=== PATIENT | female | born 1955 | race Caucasian/White ===

== ENCOUNTER → 2019-04-15 | Outpatient (CLI) | payer BC ==
[~2019-04-15] MED LIST: CITA20TA9 PO; METF500T17 PO; PRAV80TA2 PO
[2019-04-15 10:27] LABS: BASOPHILS # (AUTO) 0.05 x10^3/uL (0-0.1); BASOPHILS % (AUTO) 1 % (0-1); EOSINOPHILS # (AUTO) 0.13 x10^3/uL (0-0.4); EOSINOPHILS % (AUTO) 2 % (1-7); LYMPHOCYTES % (AUTO) 24 % (22-44); MD NO; MEAN CORPUSCULAR HEMOGLOBIN 29.4 pg (27.0-34.8); MEAN CORPUSCULAR HGB CONC 33.8 g/dL (32.4-35.8); MEAN CORPUSCULAR VOLUME 87.1 fL (80-100); MEAN PLATELET VOLUME 8.6 fL (7.4-10.4); MONOCYTES # (AUTO) 0.25 x10^3/uL (0.2-0.8); MONOCYTES % (AUTO) 4 % (2-9); NEUTROPHILS # (AUTO) 3.95 x10^3/uL (1.8-6.8); NEUTROPHILS % (AUTO) 68 % (42-75); PLATELET COUNT 308 x10^3/uL (130-400); RED BLOOD COUNT 5.09 x10^6/uL (3.82-5.3)
[2019-04-15 10:36] LABS: INTERNATIONAL NORMALIZED RATIO 0.93 (0.93-1.1); PROTHROMBIN TIME 9.8 Seconds (9.6-11.5)
[2019-04-15 10:39] LABS: ALBUMIN 3.7 g/dL (3.4-5.0); ANION GAP 6 mmol/L (5-15); CALCIUM 8.6 mg/dL (8.5-10.1); CHLORIDE 110 mmol/L (98-107)
[2019-04-15 10:42] LABS: ALANINE AMINOTRANSFERASE 20 U/L (12-78); ALKALINE PHOSPHATASE 114 U/L (45-117); BILIRUBIN,TOTAL 0.5 mg/dL (0.2-1.0); CREATININE 0.93 mg/dL (0.55-1.02); TOTAL PROTEIN 7.8 g/dL (6.4-8.2)
== END | disposition home or self-care (01) ==
LOC: STAR 09:34
PROVIDERS: ATTEND Specialist
DX: Z01.811 Encounter for preprocedural respiratory examination (principal); C56.9 Malignant neoplasm of unspecified ovary; C77.5 Secondary and unspecified malignant neoplasm of intrapelvic lymph nodes; R19.00 Intra-abdominal and pelvic swelling, mass and lump, unspecified site
CPT/HCPCS: 36415; 71046; 80053; 85025; 85610; 85730; 86304; 93005

== ENCOUNTER 2019-04-26 09:40 | Inpatient (IN) | payer BC ==
[~2019-04-26] VITALS: Ht 162.6 cm; Wt 81.9 kg
[2019-04-26] MEDS ORDERED: LACTATED RINGERS 1,000 ML IV STA (14:19)
[2019-04-26] MEDS ORDERED: CEFOTETAN PMX 2GM/50ML 50 ML IV STA (14:34)
[2019-04-26] MEDS ORDERED: CEFOTETAN PMX 2GM/50ML 50 ML ONE (14:38)
[2019-04-26] MEDS ORDERED: LACTATED RINGERS 1,000 ML IV ONE (15:30)
[2019-04-26] MEDS ORDERED: HEPARIN 1,000 UNITS/ML, 10ML ONE ×2 (16:32→16:53)
[2019-04-26] MEDS ORDERED: GABAPENTIN 300 MG CAPSULE ONE ×2 (16:32)
[2019-04-26] MEDS ORDERED: ACETAMINOPHEN 500 MG TABLET ONE ×2 (16:32)
[2019-04-26] MEDS ORDERED: BUPIVACAINE/PF-EPI 0.25% 1:200K ONE (16:52)
[2019-04-26] MEDS ORDERED: PROTAMINE SULFATE 10 MG/ML, 5ML ONE (16:52)
[2019-04-26] MEDS ORDERED: THROMBIN 5,000 UNIT VIAL TP ONE (16:53)
[2019-04-26] MEDS ORDERED: KETOROLAC 30 MG/1 ML ONE (17:05)
[2019-04-26] MEDS ORDERED: FENTANYL PF 100 MCG/2ML ONE ×3 (17:11)
[2019-04-26] MEDS ORDERED: MIDAZOLAM 1 MG/ML, 2ML ONE (17:11)
[2019-04-26] MEDS ORDERED: SUGAMMADEX 200 MG/2 ML IVPush ONE (18:34)
[2019-04-26] MEDS ORDERED: SUCCINYLCHOLINE 20 MG/ML, 10ML ONE (18:34)
[2019-04-26] MEDS ORDERED: NEOSTIGMINE 1 MG/ML, 10ML ONE (18:34)
[2019-04-26] MEDS ORDERED: PROPOFOL 10 MG/ML, 20ML ONE (18:34)
[2019-04-26] MEDS ORDERED: CEFAZOLIN 1,000 MG ONE (18:34)
[2019-04-26] MEDS ORDERED: ONDANSETRON 2MG/ML, 2ML ONE (18:34)
[2019-04-26] MEDS ORDERED: GLYCOPYRROLATE 0.2MG/1ML, 5ML ONE (18:34)
[2019-04-26] MEDS ORDERED: DEXAMETHASONE 4 MG/ML, 1ML ONE (18:34)
[2019-04-26] MEDS ORDERED: ROCURONIUM 10MG/ML,5ML ONE (18:34)
[2019-04-26] MEDS ORDERED: KETOROLAC 30 MG/1 ML IV PRN (19:00)
[2019-04-26] MEDS ORDERED: DIAZEPAM 5 MG/ML, 2ML IVPush PRN (19:00)
[2019-04-26] MEDS ORDERED: ALBUTEROL SULFATE 2.5 MG/3 ML NPPB PRN (19:00)
[2019-04-26] MEDS ORDERED: LABETALOL 5MG/ML, 20ML IV PRN (19:00)
[2019-04-26] MEDS ORDERED: hydrALAzine 20 MG/ML, 1ML IV PRN (19:00)
[2019-04-26] MEDS ORDERED: MEPERIDINE/PF 25MG/0.5ML IVPush PRN (19:00)
[2019-04-26] MEDS ORDERED: FENTANYL PF 100 MCG/2ML IV PRN (19:00)
[2019-04-26] MEDS ORDERED: PROMETHAZINE 25 MG/ML, 1ML IV PRN (19:00)
[2019-04-26] MEDS ORDERED: HYDROmorphone 2 MG/ML, 1ML IVPush PRN (19:00)
[2019-04-26] MEDS ORDERED: OXYcodone 5 MG/5 ML ORAL.SOL UDC PO PRN (19:00)
[2019-04-26] MEDS ORDERED: ACETAMINOPHEN 325 MG TABLET PO PRN (19:00)
== END 2019-04-26 23:00 | disposition home or self-care (01) | DRG 756 ==
LOC: ORIP 13:51 → 4NE 20:25
PROVIDERS: ADMIT Specialist; ATTEND Specialist
PROC: 03HY32Z Insertion of Monitoring Device into Upper Artery, Percutaneous Approach (ICD-10-PCS; 2019-04-26)
PROC: 05HY33Z Insertion of Infusion Device into Upper Vein, Percutaneous Approach (ICD-10-PCS; 2019-04-26)
PROC: B543ZZA Ultrasonography of Right Jugular Veins, Guidance (ICD-10-PCS; 2019-04-26)
PROC: 0WBH4ZX Excision of Retroperitoneum, Percutaneous Endoscopic Approach, Diagnostic (ICD-10-PCS; principal; 2019-04-26 16:00)
DX: D39.10 Neoplasm of uncertain behavior of unspecified ovary (principal); R19.00 Intra-abdominal and pelvic swelling, mass and lump, unspecified site; K66.0 Peritoneal adhesions (postprocedural) (postinfection)
CPT/HCPCS: 36415; 82962; 86850; 86900; 86923; 88305; 88341; 88342; 88360; G0378; J0690; J1100; J1644; J1885; J2250; J2405; J2704; J2710; J2720; J3010; J0330; J3490; J7120

== ENCOUNTER 2019-05-13 14:27 | Outpatient (CLI) | payer BC ==
[2019-05-13 15:31] LABS: BASOPHILS # (AUTO) 0.03 x10^3/uL (0-0.1); BASOPHILS % (AUTO) 0 % (0-1); EOSINOPHILS # (AUTO) 0.08 x10^3/uL (0-0.4); EOSINOPHILS % (AUTO) 1 % (1-7); LYMPHOCYTES # (AUTO) 1.86 x10^3/uL (1-3.4); LYMPHOCYTES % (AUTO) 24 % (22-44); MD NO; MEAN CORPUSCULAR HEMOGLOBIN 29.3 pg (27.0-34.8); MEAN CORPUSCULAR HGB CONC 33.7 g/dL (32.4-35.8); MEAN CORPUSCULAR VOLUME 86.7 fL (80-100); MEAN PLATELET VOLUME 7.8 fL (7.4-10.4); MONOCYTES # (AUTO) 0.38 x10^3/uL (0.2-0.8); MONOCYTES % (AUTO) 5 % (2-9); NEUTROPHILS # (AUTO) 5.39 x10^3/uL (1.8-6.8); NEUTROPHILS % (AUTO) 70 % (42-75); PLATELET COUNT 294 x10^3/uL (130-400); RED BLOOD COUNT 4.77 x10^6/uL (3.82-5.3); RED CELL DISTRIBUTION WIDTH 13.7 % (9.6-15.2)
[2019-05-13 15:39] LABS: ALANINE AMINOTRANSFERASE 36 U/L (12-78); ALBUMIN 3.9 g/dL (3.4-5.0); ANION GAP 6 mmol/L (5-15); CALCIUM 9.1 mg/dL (8.5-10.1); CHLORIDE 110 mmol/L (98-107); CREATININE 0.86 mg/dL (0.55-1.02)
[2019-05-13 15:41] LABS: ALKALINE PHOSPHATASE 128 U/L (45-117); BILIRUBIN,TOTAL 0.5 mg/dL (0.2-1.0); TOTAL PROTEIN 7.8 g/dL (6.4-8.2)
[2019-05-13 15:44] LABS: INTERNATIONAL NORMALIZED RATIO 0.93 (0.93-1.1); PROTHROMBIN TIME 9.9 Seconds (9.6-11.5)
== END 2019-05-13 23:59 | disposition home or self-care (01) ==
LOC: STAR 14:27
PROVIDERS: ATTEND Specialist
DX: Z01.818 Encounter for other preprocedural examination (principal); C56.9 Malignant neoplasm of unspecified ovary; C77.5 Secondary and unspecified malignant neoplasm of intrapelvic lymph nodes; R19.00 Intra-abdominal and pelvic swelling, mass and lump, unspecified site
CPT/HCPCS: 36415; 80053; 85025; 85610; 85730; 86304

== ENCOUNTER 2019-05-18 07:13 | Day surgery (SDC) | payer BC ==
[~2019-05-18] VITALS: Ht 162.6 cm; Wt 83.0 kg
[~2019-05-18 07:13] MED LIST changes: +BUPIVACAINE/PF 0.25% ONE
[2019-05-18] MEDS ORDERED: HEPARIN 1,000 UNITS/ML, 10ML ONE (07:29)
[2019-05-18] MEDS ORDERED: LACTATED RINGERS 1,000 ML IV SCH (07:32)
[2019-05-18 07:33] VITALS: BP 128/84
[2019-05-18] MEDS ORDERED: CEFOTETAN PMX 2GM/50ML 50 ML ONE (09:05)
[2019-05-18] MEDS ORDERED: MIDAZOLAM 1 MG/ML, 2ML ONE (09:08)
[2019-05-18] MEDS ORDERED: FENTANYL PF 250 MCG/5ML ONE (09:08)
[2019-05-18] MEDS ORDERED: CEFOTETAN PMX 2GM/50ML 50 ML IV ONE (09:30)
[2019-05-18] MEDS ORDERED: CEFAZOLIN 1,000 MG ONE (09:54)
[2019-05-18] MEDS ORDERED: PROPOFOL 10 MG/ML, 20ML ONE (09:54)
[2019-05-18] MEDS ORDERED: DEXAMETHASONE 4 MG/ML, 1ML ONE (09:54)
[2019-05-18] MEDS ORDERED: ONDANSETRON 2MG/ML, 2ML ONE (09:54)
[2019-05-18] MEDS ORDERED: SUGAMMADEX 200 MG/2 ML IVPush ONE (09:54)
[2019-05-18] MEDS ORDERED: SUCCINYLCHOLINE 20 MG/ML, 10ML ONE (09:54)
[2019-05-18] MEDS ORDERED: METOCLOPRAMIDE 5 MG/ML, 2ML IV PRN (11:00)
[2019-05-18] MEDS ORDERED: MEPERIDINE/PF 25MG/0.5ML IVPush PRN (11:00)
[2019-05-18] MEDS ORDERED: OMNIPAQUE 350 MG/ML, 50 ML BOTTLE ONE (11:00)
[2019-05-18] MEDS ORDERED: ALBUTEROL SULFATE 2.5 MG/3 ML NPPB PRN (11:00)
[2019-05-18] MEDS ORDERED: DIAZEPAM 5 MG/ML, 2ML IV PRN ×2 (11:00)
[2019-05-18] MEDS ORDERED: HYDROmorphone 1 MG/ML, 1ML INJ IV PRN (11:00)
[2019-05-18] MEDS ORDERED: KETOROLAC 30 MG/1 ML IV PRN (11:00)
[2019-05-18] MEDS ORDERED: OXYcodone 5 MG/5 ML ORAL.SOL UDC PO PRN (11:00)
[2019-05-18] MEDS ORDERED: hydrALAzine 20 MG/ML, 1ML IV PRN (11:00)
[2019-05-18] MEDS ORDERED: ONDANSETRON 2MG/ML, 2ML IVPush PRN (11:00)
[2019-05-18] MEDS ORDERED: PROMETHAZINE 25 MG/ML, 1ML IV PRN (11:00)
[2019-05-18] MEDS ORDERED: FENTANYL PF 100 MCG/2ML IV PRN (11:00)
[2019-05-18] MEDS ORDERED: LABETALOL 5MG/ML, 20ML IV PRN (11:00)
[2019-05-18] MEDS ORDERED: OXYcodone 5 MG/5 ML ORAL.SOL UDC ONE (11:29)
[2019-05-18] MEDS ORDERED: FENTANYL PF 100 MCG/2ML ONE (11:29)
== END 2019-05-18 13:25 | disposition home or self-care (01) ==
LOC: OUT 07:13
PROVIDERS: ATTEND Specialist
DX: C56.9 Malignant neoplasm of unspecified ovary (principal); Z79.84 Long term (current) use of oral hypoglycemic drugs; Z79.899 Other long term (current) drug therapy; Z90.710 Acquired absence of both cervix and uterus; Z98.890 Other specified postprocedural states; Z80.0 Family history of malignant neoplasm of digestive organs
CPT/HCPCS: 36561; 71045; 76937; 77001; 82962; C1788; J0330; J0690; J1100; J1644; J2250; J2405; J2704; J3010; J3490; J7120; Q9967

== ENCOUNTER 2019-05-21 08:05 | Outpatient (CLI) | payer BC ==
[~2019-05-21] VITALS: Ht 162.6 cm; Wt 83.4 kg
[~2019-05-21 08:05] MED LIST changes: -BUPIVACAINE/PF 0.25% ONE
[2019-05-21 08:40] LABS: BASOPHILS # (AUTO) 0.01 x10^3/uL (0-0.1); BASOPHILS % (AUTO) 0 % (0-1); EOSINOPHILS % (AUTO) 0 % (1-7); LYMPHOCYTES # (AUTO) 0.76 x10^3/uL (1-3.4); LYMPHOCYTES % (AUTO) 9 % (22-44); MD NO; MEAN CORPUSCULAR HEMOGLOBIN 29.5 pg (27.0-34.8); MEAN CORPUSCULAR HGB CONC 33.6 g/dL (32.4-35.8); MEAN CORPUSCULAR VOLUME 87.8 fL (80-100); MEAN PLATELET VOLUME 7.9 fL (7.4-10.4); MONOCYTES # (AUTO) 0.02 x10^3/uL (0.2-0.8); MONOCYTES % (AUTO) 0 % (2-9); NEUTROPHILS # (AUTO) 7.51 x10^3/uL (1.8-6.8); NEUTROPHILS % (AUTO) 91 % (42-75); PLATELET COUNT 335 x10^3/uL (130-400); RED BLOOD COUNT 4.94 x10^6/uL (3.82-5.3); RED CELL DISTRIBUTION WIDTH 14.2 % (9.6-15.2)
[2019-05-21 08:51] LABS: ALBUMIN 3.5 g/dL (3.4-5.0); ANION GAP 8 mmol/L (5-15); CALCIUM 9.1 mg/dL (8.5-10.1); CHLORIDE 109 mmol/L (98-107)
[2019-05-21] MEDS ORDERED: DEXA4TAB66 PO (08:51)
[2019-05-21 08:55] LABS: ALANINE AMINOTRANSFERASE 51 U/L (12-78); ALKALINE PHOSPHATASE 123 U/L (45-117); BILIRUBIN,TOTAL 0.4 mg/dL (0.2-1.0); CREATININE 0.86 mg/dL (0.55-1.02)
[2019-05-21] MEDS ORDERED: SODIUM CHLORIDE 0.9% IV ONE ×2 (09:30→10:30)
[2019-05-21] MEDS ORDERED: [UNRECOGNIZED DRUG - OTHER] IV PRN (09:30)
[2019-05-21] MEDS ORDERED: ONDANSETRON 16 MG, DEXAMETHASONE 12 MG in SODIUM CHLORIDE 0.9% 50 ML IVPB ONE (09:30)
[2019-05-21] MEDS ORDERED: PACLITAXEL IV ONE (09:30)
[2019-05-21] MEDS ORDERED: DIPHENHYDRAMINE 50 MG/ML, 1ML IVPush ONE (09:30)
[2019-05-21] MEDS ORDERED: FAMOTIDINE 20 MG/2 ML IVPush ONE (09:30)
[2019-05-21] MEDS ORDERED: PROCHLORPERAZINE 10MG TABLET PO PRN (10:00)
[2019-05-21] MEDS ORDERED: CARBOPLATIN IV ONE (10:30)
[2019-05-21 10:44] VITALS: BP_SYST 129; BP_SYST 137; BP_DIAS 60; BP_DIAS 78
== END 2019-05-21 23:59 | disposition home or self-care (01) ==
LOC: INFUSION 08:05
PROVIDERS: ATTEND Specialist
DX: Z51.11 Encounter for antineoplastic chemotherapy (principal); C56.9 Malignant neoplasm of unspecified ovary; Z79.84 Long term (current) use of oral hypoglycemic drugs; Z79.899 Other long term (current) drug therapy
CPT/HCPCS: 36415; 36591; 80053; 85025; 86304; 96367; 96375; 96413; 96415; 96417; J1100; J1200; J2405; J3490; J7040; J9045; J9267

== ENCOUNTER 2019-06-11 07:56 | Outpatient (CLI) | payer BC ==
[~2019-06-11] VITALS: Ht 162.6 cm; Wt 84.8 kg
[~2019-06-11 07:56] MED LIST changes: +DEXA4TAB66 PO
[2019-06-11 09:30] LABS: BASOPHILS # (AUTO) 0.02 x10^3/uL (0-0.1); BASOPHILS % (AUTO) 0 % (0-1); EOSINOPHILS % (AUTO) 0 % (1-7); LYMPHOCYTES # (AUTO) 0.99 x10^3/uL (1-3.4); LYMPHOCYTES % (AUTO) 9 % (22-44); MD NO; MEAN CORPUSCULAR HEMOGLOBIN 29.7 pg (27.0-34.8); MEAN CORPUSCULAR HGB CONC 33.8 g/dL (32.4-35.8); MONOCYTES # (AUTO) 0.02 x10^3/uL (0.2-0.8); MONOCYTES % (AUTO) 0 % (2-9); NEUTROPHILS # (AUTO) 9.75 x10^3/uL (1.8-6.8); NEUTROPHILS % (AUTO) 91 % (42-75); PLATELET COUNT 222 x10^3/uL (130-400); RED BLOOD COUNT 4.61 x10^6/uL (3.82-5.3); RED CELL DISTRIBUTION WIDTH 14.1 % (9.6-15.2)
[2019-06-11 09:33] LABS: ALANINE AMINOTRANSFERASE 50 U/L (12-78); ALBUMIN 3.4 g/dL (3.4-5.0); ANION GAP 5 mmol/L (5-15); CALCIUM 8.8 mg/dL (8.5-10.1); CHLORIDE 111 mmol/L (98-107); CREATININE 0.96 mg/dL (0.55-1.02)
[2019-06-11 09:35] LABS: ALKALINE PHOSPHATASE 138 U/L (45-117); BILIRUBIN,TOTAL 0.3 mg/dL (0.2-1.0); TOTAL PROTEIN 7.6 g/dL (6.4-8.2)
[2019-06-11] MEDS ORDERED: DIPHENHYDRAMINE 50 MG/ML, 1ML IVPush ONE ×2 (10:00)
[2019-06-11] MEDS ORDERED: ONDANSETRON 16 MG, DEXAMETHASONE 12 MG in SODIUM CHLORIDE 0.9% 50 ML IVPB ONE (10:00)
[2019-06-11] MEDS ORDERED: PROCHLORPERAZINE 10MG TABLET PO PRN (10:00)
[2019-06-11] MEDS ORDERED: FAMOTIDINE 20 MG/2 ML IVPush ONE (10:00)
[2019-06-11] MEDS ORDERED: SODIUM CHLORIDE 0.9% IV ONE ×2 (10:30→13:30)
[2019-06-11] MEDS ORDERED: PACLITAXEL IV ONE (10:30)
[2019-06-11] MEDS ORDERED: [UNRECOGNIZED DRUG - OTHER] IV ONE (10:30)
[2019-06-11 11:59] VITALS: BP 137/82
[2019-06-11] MEDS ORDERED: CARBOPLATIN IV ONE (13:30)
== END 2019-06-11 23:59 | disposition home or self-care (01) ==
LOC: INFUSION 07:56
PROVIDERS: ATTEND Specialist
DX: Z51.11 Encounter for antineoplastic chemotherapy (principal); C56.9 Malignant neoplasm of unspecified ovary; C77.5 Secondary and unspecified malignant neoplasm of intrapelvic lymph nodes; Z90.710 Acquired absence of both cervix and uterus; Z79.84 Long term (current) use of oral hypoglycemic drugs; Z79.899 Other long term (current) drug therapy
CPT/HCPCS: 36415; 36591; 80053; 83735; 85025; 96367; 96375; 96413; 96415; 96417; J1100; J1200; J2405; J3490; J7040; J7050; J9045; J9267